=== PATIENT | male | born 1990 | race African-American/Black ===

== ENCOUNTER 2017-09-09 19:22 | Emergency (ER) | payer OTHER ==
[2017-09-09] MEDS: NEOMY/BACITR/POLYMYXIN OINT PACKET. TP (20:38)
[2017-09-09] MEDS: DIPHTH,PERTUSS(ACELL),TET TOX 0.5 ML DISP.SYRIN. VAX IM (20:38)
== END 2017-09-09 20:45 | disposition home or self-care (01) ==
LOC: ER 20:45
DX: S41.152A Open bite of left upper arm, initial encounter (principal); G40.909 Epilepsy, unspecified, not intractable, without status epilepticus; W50.3XXA Accidental bite by another person, initial encounter; Y93.89 Activity, other specified; Y99.8 Other external cause status; Y92.89 Other specified places as the place of occurrence of the external cause
CPT/HCPCS: 90471; 90715; 99283-25